=== PATIENT | male | born 1960 | race African-American/Black ===

== ENCOUNTER 2017-05-20 11:53 | Emergency (ER) | payer OTHER ==
[2017-05-20 12:06] VITALS: RESP 16
[2017-05-20] MEDS ORDERED: HYDROcodone/APAP 5-325MG 1 EACH TAB PO STA (13:07)
[2017-05-20] MEDS ORDERED: DIAZEPAM 5 MG TAB PO STA (13:07)
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
[2017-05-20 14:00] VITALS: BP 124/78; PULSE 71; TEMP 97.9
== END 2017-05-20 14:00 | disposition home or self-care (01) ==
LOC: EC 11:53
DX: M79.1 Myalgia (principal); M25.511 Pain in right shoulder; F17.200 Nicotine dependence, unspecified, uncomplicated; Z88.5 Allergy status to narcotic agent; Z88.6 Allergy status to analgesic agent; V89.2XXA Person injured in unspecified motor-vehicle accident, traffic, initial encounter; Y92.410 Unspecified street and highway as the place of occurrence of the external cause
CPT/HCPCS: 72100; 99284

== ENCOUNTER 2017-06-07 18:39 | Emergency (ER) | payer OTHER ==
[2017-06-07 18:47] VITALS: BP 120/75; PULSE 85; RESP 20; TEMP 97.7
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
== END 2017-06-07 19:31 | disposition home or self-care (01) ==
LOC: EC 18:39
DX: M12.811 Other specific arthropathies, not elsewhere classified, right shoulder (principal); F17.200 Nicotine dependence, unspecified, uncomplicated; Z88.5 Allergy status to narcotic agent; Z88.8 Allergy status to other drugs, medicaments and biological substances; V99.XXXD Unspecified transport accident, subsequent encounter
CPT/HCPCS: 99283

== ENCOUNTER 2017-12-12 04:39 | Emergency (ER) | payer OTHER ==
--- NOTE | 2017-12-12 05:49 | XR ---
EXAMINATION TYPE: XR foot complete bilateral DATE OF EXAM: 12/12/2017 COMPARISON: NONE HISTORY: Flatfeet. Foot pain TECHNIQUE: 6 views 3 views each foot FINDINGS: There is a plate fixating the right distal fibula. There is narrowing and spurring at the f irst MP joint of both feet. The metatarsals are intact. There are no erosions. There is no subluxatio n. There is no osteopenia. There is small right side Achilles calcaneal spur. There is small left thao e Achilles calcaneal spur. IMPRESSION: Symmetric osteoarthritis in the first MP joints. Calcaneal spurring. No fracture. No evid ence of pes planus. Right foot is stable compared to 08/19/2012. No evidence of inflammatory arthritis . Old healed fracture distal right fourth metatarsal noted.
--- NOTE | 2017-12-12 05:50 | XR ---
EXAMINATION TYPE: XR shoulder complete RT DATE OF EXAM: 12/12/2017 COMPARISON: 05/20/2017 HISTORY: Shoulder pain TECHNIQUE: 3 views FINDINGS: There is some widening of the AC joint space with erosion on the lateral end of the clavicl e. I see no fracture nor dislocation. Glenohumeral joint is intact. IMPRESSION: There is some deformity at the AC joint consistent with old ligamentous injury. No fractu re seen. No significant change.
[2017-12-12 07:07] VITALS: BP 145/87; PULSE 71; RESP 18; TEMP 98.3
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
== END 2017-12-12 07:20 | disposition home or self-care (01) ==
LOC: EC 04:39
DX: M19.072 Primary osteoarthritis, left ankle and foot (principal); M19.071 Primary osteoarthritis, right ankle and foot; M25.511 Pain in right shoulder; F17.200 Nicotine dependence, unspecified, uncomplicated; Z98.890 Other specified postprocedural states; Z88.5 Allergy status to narcotic agent; Z88.8 Allergy status to other drugs, medicaments and biological substances
CPT/HCPCS: 99283

== ENCOUNTER 2018-06-30 09:19 | Emergency (ER) | payer OTHER ==
[2018-06-30 09:25] VITALS: RESP 18; TEMP 98.1
[2018-06-30] MEDS ORDERED: methylPREDNISolone SOD SUCCI 125 MG/2 ML VIAL IM ONE (09:46)
[2018-06-30] MEDS ORDERED: IPRATROPIUM-ALBUTEROL 3 ML NEB INHALATION STA (09:46)
--- NOTE | 2018-06-30 09:48 | ED ---
URI HPI - General Chief Complaint: Upper Respiratory Infection Stated Complaint: [place], cough Time Seen by Provider: 06/30/18 09:31 Source: patient, RN notes reviewed, old records reviewed Mode of arrival: ambulatory Limitations: no limitations - History of Present Illness Initial Comments: 58-year-old male with a history of smoking presents emergency Department today with complaints of lingering cough for the past 2 weeks. Patient states that he is had increased production of sputum. Patient states that he seemed like his cough was getting better but then continues to linger on. Patient states that he has no lower extremity swelling. He denies chest pain. He states that he has a tickle in his throat. He reports that he was told that he has a benign pulmonary nodule. Patient states that he has no abdominal pain, nausea or vomiting. - Related Data Previous Rx's Medication Instructions Recorded Ibuprofen [Motrin] 800 mg PO Q8H PRN #20 tab 06/07/17 Albuterol Inhaler [Ventolin Hfa 1 - 2 puff INHALATION RT-Q6H PRN 06/30/18 Inhaler] #1 inhaler Azithromycin [Zithromax Z-pack] 250 mg PO DIRECTED #6 tab 06/30/18 predniSONE 50 mg PO DAILY #5 tablet 06/30/18 Allergies Allergy/AdvReac Type Severity Reaction Status Date / Time acetaminophen Allergy Itching Verified 06/30/18 09:46 [From Darvocet-N] propoxyphene napsylate Allergy Itching Verified 06/30/18 09:46 [From Darvocet-N] Review of Systems ROS Statement: Those systems with pertinent positive or pertinent negative responses have been documented in the HPI. ROS Other: All systems not noted in ROS Statement are negative. Past Medical History Past Medical History: Hyperlipidemia Additional Past Medical History / Comment(s): Chronic back & leg pain, previous drug user History of Any Multi-Drug Resistant Organisms: None Reported Past Surgical History: Orthopedic Surgery Additional Past Surgical History / Comment(s): Sx: right ankle 7 screws, left thumb Past Anesthesia/Blood Transfusion Reactions: No Reported Reaction Past Psychological History: Depression Smoking Status: Current every day smoker Past Alcohol Use History: None Reported Past Drug Use History: None Reported - Past Family History Mother Family Medical History: Hypertension Father Family Medical History: Hypertension General Exam - General Exam Comments Initial Comments: Pleasant 58-year-old -[place] male. Limitations: no limitations General appearance: alert, in no apparent distress Head exam: Present: atraumatic, normocephalic, normal inspection Eye exam: Present: normal appearance, PERRL, EOMI. Absent: scleral icterus, conjunctival injection, periorbital swelling ENT exam: Present: normal exam, mucous membranes moist Neck exam: Present: normal inspection. Absent: tenderness, meningismus, lymphadenopathy Respiratory exam: Present: wheezes. Absent: normal lung sounds bilaterally, respiratory distress, rales, rhonchi, stridor Cardiovascular Exam: Present: regular rate GI/Abdominal exam: Present: soft, normal bowel sounds. Absent: distended, tenderness, guarding, rebound, rigid Extremities exam: Present: normal inspection, full ROM, normal capillary refill. Absent: tenderness, pedal edema, joint swelling, calf tenderness Back exam: Present: normal inspection Neurological exam: Present: alert Psychiatric exam: Present: normal affect, normal mood Skin exam: Present: warm, dry, intact, normal color. Absent: rash Course Vital Signs 06/30/18 06/30/18 06/30/18 09:22 10:02 10:11 Temperature 98.1 F Pulse Rate 86 72 68 Respiratory 18 Rate Blood Pressure 117/84 O2 Sat by Pulse 95 Oximetry Medical Decision Making - Medical Decision Making 58-year-old male presents emergency Department today with complaints of cough and congestion. Patient reports that he has had a long history of smoking, history of COPD. Patient arrives to emergency department with diffuse wheezing and rhonchi noted. Patient's chest x-ray was negative for any acute process. He does have some improvement after IM Solu-Medrol and a DuoNeb treatment. I discussed at this time to treat for COPD exacerbation. Patient will be discharged with prescription for steroids, and anabiotic. I discussed that he should've close follow-up with his primary care physician and given referral for pulmonology as well. Patient understands treatment plan will comply. Return parameters were discussed. - Radiology Data Radiology results: report reviewed Chest x-rays negative for any acute pulmonary disease. Scattered sense and parenchymal changes noted. Disposition Clinical Impression: Bronchitis Disposition: HOME SELF-CARE Condition: Good Instructions (If sedation given, give patient instructions): Upper Respiratory Infection (ED) Additional Instructions: Patient advised to have close follow-up with primary care physician. Patient should return to the emergency department if any alarming signs or symptoms occur. Patient should take the medication as prescribed. Return to the emergency department if there is any severe difficulty breathing or chest pain. Prescriptions: Albuterol Inhaler [Ventolin Hfa Inhaler] 1 - 2 puff INHALATION RT-Q6H PRN #1 inhaler PRN Reason: Shortness Of Breath Azithromycin [Zithromax Z-pack] 250 mg PO DIRECTED #6 tab predniSONE 50 mg PO DAILY #5 tablet Is patient prescribed a controlled substance at d/c from ED?: No Referrals: None,Stated [Primary Care Provider] - 1-2 days Melina Saxena MD [REFERRING] - 1-2 days Marisa Romero MD [STAFF PHYSICIAN] - 1-2 days Time of Disposition: 10:45
--- NOTE | 2018-06-30 09:59 | XR ---
EXAMINATION TYPE: XR chest 2V DATE OF EXAM: 06/30/2018 COMPARISON: 04/28/2015 HISTORY: Shortness of breath TECHNIQUE: Frontal and lateral views of the chest are obtained. FINDINGS: Scattered senescent parenchymal changes noted. Hyperinflation compatible with COPD. No evidence for infiltrate. No evidence for atelectasis. Heart size is stable. Mediastinal structures are stable and grossly unremarkable. No evidence for hilar prominence. Degenerative changes dorsal spine. IMPRESSION: 1. No evidence for acute pulmonary disease.
[2018-06-30 10:58] VITALS: BP 132/81; PULSE 65
== END 2018-06-30 10:58 | disposition home or self-care (01) ==
LOC: EC 09:19
DX: J44.1 Chronic obstructive pulmonary disease with (acute) exacerbation (principal); F17.200 Nicotine dependence, unspecified, uncomplicated; Z88.5 Allergy status to narcotic agent
CPT/HCPCS: 94640; 71046; 99285; 96372; J2930